=== PATIENT | female | born 2000 | race African-American/Black ===

== ENCOUNTER 2022-09-05 19:46 | Inpatient (IN) | payer BC ==
[~2022-09-05] VITALS: Ht 172.7 cm; Wt 95.3 kg
--- NOTE | 2022-09-05 19:58 | NUR ---
After being triaged on [facility], patient was placed in the waiting room by rescue due to no beds available.
--- NOTE | 2022-09-05 22:00 | NUR ---
Patient called 911 due to right side throat pain. Patient states she has enlarge right side goiter.
--- NOTE | 2022-09-05 22:19 | NUR ---
PATIENT PLACED IN 4B AT THIS TIME
--- NOTE | 2022-09-05 22:26 | NUR ---
Dr. Cazares on bedside for MSE.
[2022-09-05] MEDS ORDERED: PROPRANOLOL HCL 1 MG/1 ML VIAL IVP ONE (22:45)
[2022-09-05 23:23] LABS: CARBON DIOXIDE 26 mmol/L (21-32); CHLORIDE 104 mmol/L (98-107); CREATININE 0.5 mg/dL (0.6-1.3); GLUCOSE 116 mg/dL (74-106); POTASSIUM 4.4 mmol/L (3.5-5.1); UREA NITROGEN, BLOOD 11 mg/dL (7-18)
[2022-09-05] MEDS ORDERED: METH10TA7 PO (23:27)
[2022-09-05] MEDS ORDERED: PROP120C54 PO (23:27)
[2022-09-05] MEDS ORDERED: ALBU8.5H8 IH (23:27)
[2022-09-05 23:30] LABS: ALANINE AMINOTRANSFERASE 30 U/L (14-59); ALKALINE PHOSPHATASE 245 U/L (50-136); ASPARTATE AMINOTRANSFERASE 27 U/L (15-37); BILIRUBIN,TOTAL 0.8 mg/dL (0.2-1.0); TOTAL PROTEIN, SERUM 8.7 g/dL (6.4-8.2)
[2022-09-05 23:35] LABS: HEMATOCRIT 40.8 % (31.2-41.9); MEAN CORPUSCULAR HEMOGLOBIN 27.9 uug (24.7-32.8); MEAN CORPUSCULAR VOLUME 82.6 fL (75.5-95.3); PLATELET COUNT (AUTO) 359 K/uL (179-408); THYROID STIMULATING HORMONE < 0.007 mIU/mL (0.358-3.740)
--- NOTE | 2022-09-06 00:15 | NUR ---
Epic panel call placed, spoke to Mia , she stated she will get a hold of [facility] for admitting.
--- NOTE | 2022-09-06 00:16 | NUR ---
Dr. Cazares on panel call with [employer]ITATION SUPERINTENDENT Cleo. Patient accepted for admission to telemetry unit Dx. Thyroid storm.
[2022-09-06] MEDS ORDERED: IV NS 1000 ML 1,000 ML IV PRN (00:30)
[2022-09-06] MEDS ORDERED: ACETAMINOPHEN 325 MG TABLET PO PRN (00:30)
[2022-09-06] MEDS ORDERED: MAGNESIUM HYDROXIDE 30 ML LIQUID UDC PO PRN (00:30)
[2022-09-06] MEDS ORDERED: HYDROCORTISONE SOD SUCCINATE 100 MG/2 ML VIAL IV ONE ×2 (00:30→03:11)
[2022-09-06] MEDS ORDERED: ONDANSETRON 4 MG/2 ML VIAL IV PRN (00:30)
[2022-09-06] MEDS ORDERED: REMEDY ESSENTIAL ZINC PASTE 113 GM TP PRN (00:30)
[2022-09-06] MEDS ORDERED: PROPRANOLOL HCL 1 MG/1 ML VIAL IVP ONE (00:30)
--- NOTE | 2022-09-06 00:49 | NUR ---
Ernie shah in ED - 09/06/22 at 0050 by JADE Follow up with case checker Nissa, awaiting for bed at [facility].
[2022-09-06 01:30] VITALS: BP 153/77
--- NOTE | 2022-09-06 01:35 | NUR ---
Pt. admitted to telemetry unit room 329B , under care of MANAGER INSURANCE Cleo. Belongs List completed.
[2022-09-06] MEDS ORDERED: PROP60CA38 PO (08:36)
[2022-09-06] MEDS ORDERED: PROPRANOLOL HCL PO SCH (09:00)
[2022-09-06] MEDS ORDERED: PROPRANOLOL LA 60 MG CAP.SA.24H PO ONE (09:30)
[2022-09-06 11:59] VITALS: BP 138/65
[2022-09-06 15:52] VITALS: BP 155/82
[2022-09-06] MEDS ORDERED: CHOL4PAC5 GT (16:54)
[2022-09-06] MEDS ORDERED: PANT40TA2 PO (16:54)
[2022-09-06] MEDS ORDERED: METH10TA7 PO (16:54)
[2022-09-06] MEDS ORDERED: DEXA6TAB6 PO (16:54)
--- NOTE | 2022-09-06 17:29 | NUR ---
Patient is getting discharged at stable condition with no complications at this time.
[2022-09-06] MEDS ORDERED: PROPRANOLOL LA 60 MG CAP.SA.24H PO SCH (21:00)
== END 2022-09-06 17:30 | disposition home or self-care (01) | DRG 645 ==
LOC: ER 19:52 → TELE3 09-06 00:24
PROVIDERS: ADMIT Registered Nurse; ATTEND Registered Nurse
DX: E05.01 Thyrotoxicosis with diffuse goiter with thyrotoxic crisis or storm (principal); E66.9 Obesity, unspecified; I10 Essential (primary) hypertension; J45.909 Unspecified asthma, uncomplicated; M06.9 Rheumatoid arthritis, unspecified; Z68.31 Body mass index [BMI] 31.0-31.9, adult; E06.3 Autoimmune thyroiditis; Z20.822 Contact with and (suspected) exposure to COVID-19
CPT/HCPCS: 36415; 84443; 85025; 93005; A4663; G0378; J1720; J1800; J7040

== ENCOUNTER 2022-11-13 01:12 | Emergency (ER) | payer BC ==
[~2022-11-13] VITALS: Ht 172.7 cm; Wt 115.7 kg
[~2022-11-13 01:12] MED LIST: ALBU8.5H8 IH; CHOL4PAC5 GT; DEXA6TAB6 PO; METH10TA7 PO; PANT40TA2 PO; PROP60CA38 PO
--- NOTE | 2022-11-13 01:29 | NUR ---
Dr. Rosario evaluated patient at bedside. MSE in progress.
[2022-11-13 01:59] LABS: *BILIRUBIN,URIN NEGATIVE (NEGATIVE); *BLOOD, URINE 1+ (NEGATIVE); *CLARITY,URINE CLEAR (CLEAR); *COLOR,URINE YELLOW (YELLOW); *KETONES,URINE TRACE (NEGATIVE); LEUKOCYTE ESTERASE ,URINE NEGATIVE (NEGATIVE); NITRITE, URINE NEGATIVE (NEGATIVE)
[2022-11-13 02:02] LABS: UGLUCOSE 1+ (NEGATIVE)
[2022-11-13 02:04] LABS: BACTERIA,URINE R /HPF (NONE SEEN); SQUAMOUS EPITHELIAL CELL,UR FEW /HPF (NONE SEEN); WBC,URINE 0-3 /HPF (0-3)
[2022-11-13] MEDS ORDERED: BLOO-1731 MC (02:35)
[2022-11-13] MEDS ORDERED: EPIN0.3A4 IM (02:48)
--- NOTE | 2022-11-13 02:52 | NUR ---
Patient discharged to home in stable condition. A/O x4. NAD noted. Ambulatory with a steady gait. All belongings with patient. Written and verbal after care instructions given. Patient verbalizes understanding of instructions. Stressed follow up or return to ER for worsening s/s.
[2022-11-13 02:53] VITALS: BP 149/88
== END 2022-11-13 02:50 | disposition home or self-care (01) ==
LOC: ER 01:12
DX: R22.9 Localized swelling, mass and lump, unspecified (principal); T78.3XXA Angioneurotic edema, initial encounter; R81 Glycosuria; M06.9 Rheumatoid arthritis, unspecified; E05.00 Thyrotoxicosis with diffuse goiter without thyrotoxic crisis or storm; J45.909 Unspecified asthma, uncomplicated; R03.0 Elevated blood-pressure reading, without diagnosis of hypertension
CPT/HCPCS: A4663

== ENCOUNTER 2023-02-08 16:51 | Emergency (ER) | payer BC ==
[~2023-02-08] VITALS: Ht 172.7 cm; Wt 129.3 kg
[~2023-02-08 16:51] MED LIST changes: +BLOO-1731 MC; +EPIN0.3A4 IM
--- NOTE | 2023-02-08 17:01 | NUR ---
[email or web address], medical screening exam in progress
--- NOTE | 2023-02-08 18:16 | NUR ---
Patient discharged to home in stable condition. Written and verbal after care instructions given to patient. Patient verbalized understanding and compliance of instructions. Stressed follow up with your primary doctor as scheduled next week or return to ER for worsening s/s.
== END 2023-02-08 18:18 | disposition home or self-care (01) ==
LOC: ER 16:51
DX: E05.00 Thyrotoxicosis with diffuse goiter without thyrotoxic crisis or storm (principal); J45.909 Unspecified asthma, uncomplicated; M06.9 Rheumatoid arthritis, unspecified; R03.0 Elevated blood-pressure reading, without diagnosis of hypertension
CPT/HCPCS: 70450; A4663

== ENCOUNTER 2023-04-11 08:05 | Emergency (ER) | payer BC, OTHER ==
[~2023-04-11] VITALS: Ht 172.7 cm; Wt 147.9 kg
[2023-04-11] MEDS ORDERED: FAMOTIDINE 20 MG TABLET ONE (08:19)
[2023-04-11] MEDS ORDERED: predniSONE 20 MG TABLET ONE (08:20)
[2023-04-11] MEDS: FAMOTIDINE 20 MG TABLET PO ONE (08:23)
[2023-04-11] MEDS: predniSONE 10 MG TABLET PO ONE (08:23)
[2023-04-11] MEDS ORDERED: LEVO175T2 PO (08:25)
[2023-04-11] MEDS ORDERED: AMLO10TA59 PO (08:25)
[2023-04-11] MEDS ORDERED: HYDR25TA4 PO (08:25)
--- NOTE | 2023-04-11 08:25 | NUR ---
PT IS IN ROOM #2A. DR DAWKINS EVALUATED THE PT.
[2023-04-11 08:54] LABS: HEMATOCRIT 41.6 % (31.2-41.9); MEAN CORPUSCULAR HEMOGLOBIN 29.3 uug (24.7-32.8); MEAN CORPUSCULAR VOLUME 88.5 fL (75.5-95.3); PLATELET COUNT (AUTO) 434 K/uL (179-408)
[2023-04-11 09:06] LABS: CREATININE 0.9 mg/dL (0.6-1.3); POTASSIUM 3.8 mmol/L (3.5-5.1)
[2023-04-11 10:15] LABS: THYROID STIMULATING HORMONE 25.917 mIU/mL (0.358-3.740)
[2023-04-11 10:22] LABS: MAGNESIUM 1.7 mg/dL (1.8-2.4)
[2023-04-11] MEDS ORDERED: PRED50TA PO (10:27)
--- NOTE | 2023-04-11 10:50 | NUR ---
PT WAS DISCHARGED TO HOME. D/C INSTRUCTIONS GIVEN TO THE PT BY DR DAWKINS.
[2023-04-11 10:51] VITALS: BP 142/73
== END 2023-04-11 10:51 | disposition home or self-care (01) ==
LOC: ER 08:05
DX: L50.9 Urticaria, unspecified (principal); M62.838 Other muscle spasm; E03.9 Hypothyroidism, unspecified; I10 Essential (primary) hypertension; R10.2 Pelvic and perineal pain; J45.909 Unspecified asthma, uncomplicated; Z88.8 Allergy status to other drugs, medicaments and biological substances; Z79.899 Other long term (current) drug therapy
CPT/HCPCS: 99283; 80048; 83735; 84443; 85025; 84702; 36415; J7512; A4663